=== PATIENT | male | born 1965 ===

== ENCOUNTER 2025-02-22 07:23 | Outpatient (NON) | payer OTHER, SELFPAY ==
--- NOTE | 2025-02-22 | S_PTH ---
PATIENT: Aleksey Neal LOC: [facility] U#:[id number] AGE/SX: 59/M ROOM: RE02/22/[address]: Misha Willis DO : 1965 BED: DIS: 02/22/2025 SPEC #: [id number] RECD: 02/23/25 08:20 STATUS: RIKKI REQ #: [id number] KARELY: 02/22/25 00:[address]: Misha Willis DEPT: [facility] Surgical RECD BY: Pawel Ferreira ENTERED: 02/23/25 08:21 SP TYPE: Surgical OTHR DR: UNKNOWN,DOCTOR Tissues: A - Colon Polypectomy Procedures: Hematoxylin and Eosin Stain Gross and Microscopic Level 4
== END 2025-02-22 07:24 | disposition home or self-care (01) ==
PROVIDERS: Visit Provider Surgery
DX: Z12.11 Encounter for screening for malignant neoplasm of colon (principal)
CPT/HCPCS: 88305

== ENCOUNTER 2025-02-22 07:45 | Day surgery (SDC) | payer OTHER, SELFPAY ==
[2024-11-26 11:28] VITALS: BMI 26.0
[2025-02-03 13:39] VITALS: BMI 26.0
--- NOTE | 2025-02-22 08:24 | SUR.PREOP ---
PRISONER ARRIVES WITH 2 GUARDS
[2025-02-22 08:25] VITALS: BMI 25.9
[2025-02-22 08:26] VITALS: BP 128/93; PULSE 76; RESP 18; TEMP 36.8; O2SAT 96
[2025-02-22] MEDS: LACTATED RINGERS 1,000 ML 150 ML IV CONT ×2 (08:37→09:46)
--- NOTE | 2025-02-22 08:44 | PM.IMHP ---
H&P: HPI History of Present Illness Date/Time: 02/22/25 08:44 Chief Complaint: screening for colorectal cancer Narrative: this is a 59-year-old man who presents for his 1st colonoscopy. He denies any hematochezia or melena. He denies family history of colon . He is a [place] presented in-mate. Review of Systems Review of Systems: All systems reviewed & are unremarkable except as noted in HPI and below Constitutional: Constitutional: Denies chills, Denies fever(s), Denies headache(s) and Denies weight loss Eyes: Eyes: Denies change in vision ENT: Denies dizziness, Denies headache(s), Denies neck mass and Denies throat swelling Cardiovascular: Cardiovascular: Denies chest pain, Denies lightheadedness and Denies dyspnea Respiratory: Respiratory: Denies cough, Denies dyspnea and Denies wheezing Gastrointestinal: Gastrointestinal: Denies abdominal pain, Denies change in bowel habits, Denies nausea and Denies vomiting Genitourinary: Genitourinary: Denies hematuria and Denies dysuria Musculoskeletal: Musculoskeletal: Reports as per HPI Integumentary/Breasts: Skin/Breast: Reports as per HPI Neurologic: Denies dizziness and Denies headache(s) Allergic/Immunologic: Allergic/Immunologic: Denies throat swelling and Denies wheezing PMFSH Social History Social History Living arrangements: incarcerated Meds Home Medications and Allergies Home Medications ?Medication ?Instructions ?Recorded ?Confirmed ?Type cholecalciferol (vitamin D3) 50 50 mcg PO DAILY 02/03/25 02/22/25 History mcg (2,000 unit) capsule tiotropium bromide 18 mcg capsule 1 cap inhalation DAILY 02/03/25 02/22/25 History with inhalation device (Spiriva with HandiHaler) Allergies Allergy/AdvReac Type Severity Reaction Status Date / Time clonazepam (From Klonopin) Allergy Intermediate dystonia Verified 02/22/25 08:10 Vital Signs Vital Signs - 24 hr 02/22/25 08:26 Temperature 98.2 F Pulse Rate 76 Respiratory Rate 18 Blood Pressure 128/93 H Pulse Oximetry 96 Oxygen Delivery Room Air Exam Const: General: no acute distress and alert Orientation/consciousness: patient oriented x3 HENMT: Head: normocephalic and atraumatic Ears: hearing grossly normal bilaterally Face/Nose/Sinus: Normal nares present Mouth: Yes Normal oral and palatal mucosa present Eyes: Periorbital: periorbital findings normal Sclera: sclerae normal EOM: EOMs intact bilaterally Neck: Neck: normal visual inspection, no lymphadenopathy and trachea midline Chest: Chest palpation & inspection: normal inspection of the chest Resp: Effort & Inspection: normal respiratory effort Auscultation: clear to auscultation bilaterally Cardio: Jugular venous distension: no JVD Rate: regular rate Rhythm: regular rhythm Heart sounds: S1 normal heart sound present and S2 normal heart sound present Peripheral pulses: Peripheral pulses 2+ throughout GI: Inspection: normal to inspection GI Palp: Yes Soft to palpation, No Tenderness to palpation present (GI), No Guarding due to palpation present (GI) and No Rebound tenderness present Percussion: Yes normal to percussion Auscultation: normal bowel sounds : General: Yes no CVA tenderness Back/Spine/Pelvis: Back: no CVA tenderness Neuro: General: patient oriented x3, no focal motor deficits and CN's II-XI intact bilaterally Cognition (Neuro): normal cognition Speech: normal speech Motor exam (neuro): 5/5 motor strength present throughout Extrem: General: capillary refill normal and no clubbing, cyanosis or edema Assessment and Plan Assessment and plan (1) Screening for colorectal cancer: Code(s): Z12.11 - Encounter for screening for malignant neoplasm of colon; Z12.12 - Encounter for screening for malignant neoplasm of rectum Status: Acute Assessment and Plan: I have recommended colonoscopy. I have discussed the procedure, risks, benefits, and alternatives. Questions were answered. Patient is agreeable to proceed.
--- NOTE | 2025-02-22 09:02 | P.PNAN_ITS ---
Anes - Initial Pre Proc Eval Procedure: Operation Date: 02/22/25 09:00 Proposed Procedures p Screening Colonoscopy - Misha Willis DO Date/Time: 02/22/25 09:02 Surgeon: Misha Willis DO Pre Op Diagnosis: Neoplasm Screening Patient Data Age: 59 Gender: M Height: 1.98 m Weight: 102 kg Last Vital Signs Temp 98.2 F 02/22/25 08:26 Pulse 76 02/22/25 08:26 Resp 18 02/22/25 08:26 BP 128/93 H 02/22/25 08:26 Pulse Ox 96 02/22/25 08:26 O2 Del Method Room Air 02/22/25 08:26 Allergies Allergy/AdvReac Type Severity Reaction Status Date / Time clonazepam (From Klonopin) Allergy Intermediate dystonia Verified 02/22/25 08:10 Home Medications ?Medication ?Instructions ?Recorded ?Confirmed ?Type cholecalciferol (vitamin D3) 50 50 mcg PO DAILY 02/03/25 02/22/25 History mcg (2,000 unit) capsule tiotropium bromide 18 mcg capsule 1 cap inhalation DAILY 02/03/25 02/22/25 History with inhalation device (Spiriva with HandiHaler) Patient hx anesthesia problems: none Family hx anesthesia problems: none Results Review: All pre-operative results and documents have been reviewed as part of the pre- operative evaluation. [facility] Social History Social History Living arrangements: incarcerated Anes - Eval Final PreProcedure Day of Procedure 02/22/25 09:02 Heart: regular rate and rhythm Lungs: clear to auscultation Airway: Mallampati scale class II Neurological: alert and oriented Last oral intake: >/= 8 hours ASA classification: III Anesthetic plan: proceed Anesthesia type and monitoring: monitored anesthesia care Results Review: All pre-operative results and documents have been reviewed as part of the pre- operative evaluation. Informed Consent: The patient's anesthetic plan and its attendant risks and benefits were discussed with the patient/family/POA. Questions were solicited and answers provided to the satisfaction of the patient/family/POA.
--- NOTE | 2025-02-22 09:14 | WPDANESPN ---
Anes - Prog Note Post-Op Date/Time: 02/22/25 09:14 Vital Signs: Last Vital Signs Temp 98.2 F 02/22/25 08:26 Pulse 76 02/22/25 08:26 Resp 18 02/22/25 08:26 BP 128/93 H 02/22/25 08:26 Pulse Ox 96 02/22/25 08:26 O2 Del Method Room Air 02/22/25 08:26 Pain Score (VAS): no I/O: Intake & Output 02/21/25 02/22/25 02/22/25 23:59 07:59 15:59 Intake Total 0 Balance 0 Patient Feedback: Patient satisfied with anesthetic care.
[2025-02-22 09:16] VITALS: BP 112/68; PULSE 101; RESP 14; O2SAT 95
[2025-02-22 09:26] VITALS: BP 112/68; PULSE 86; RESP 16
[2025-02-22 09:36] VITALS: BP 124/86; PULSE 84; RESP 15; O2SAT 98
== END 2025-02-22 09:58 | disposition home or self-care (01) ==
PROVIDERS: Visit Provider Surgery
PROC: 0DJD8ZZ Inspection of Lower Intestinal Tract, Via Natural or Artificial Opening Endoscopic (ICD-10-PCS; CPT 45378; principal; 2025-02-22 09:00)
DX: Z12.11 Encounter for screening for malignant neoplasm of colon (principal); D12.3 Benign neoplasm of transverse colon
CPT/HCPCS: 45385